=== PATIENT | male | born 2000 | race Caucasian/White ===

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

== ENCOUNTER 2021-10-04 15:06 | Emergency (ER) | payer SELFPAY ==
[~2021-10-04] VITALS: Ht 165.1 cm; Wt 53.6 kg
[~2021-10-04 15:06] MED LIST changes: -AMOX-580 PO; -HYDR-4353 PO; +LACT1CAP26 PO; +NO HOME MEDS; +ONDA4TAB6 SL
[2021-10-04] MEDS ORDERED: ibuprofen 200mg tablet PO ONE (16:05)
[2021-10-04 17:07] VITALS: BP 122/79
== END 2021-10-04 17:15 | disposition home or self-care (01) ==
LOC: ER 15:07
DX: S30.0XXA Contusion of lower back and pelvis, initial encounter (principal); M54.6 Pain in thoracic spine; Z79.899 Other long term (current) drug therapy; Z90.49 Acquired absence of other specified parts of digestive tract; Z87.19 Personal history of other diseases of the digestive system; V86.56XA Driver of dirt bike or motor/cross bike injured in nontraffic accident, initial encounter; Y93.89 Activity, other specified; Y92.89 Other specified places as the place of occurrence of the external cause; Y99.8 Other external cause status
CPT/HCPCS: 72192; 72193; 99284